=== PATIENT | male | born 1995 | race African-American/Black ===

== ENCOUNTER 2017-03-19 14:45 | Emergency (ER) | payer SELFPAY ==
[2017-03-19 14:55] VITALS: BP 120/59; PULSE 90; RESP 20; TEMP 98.1
--- NOTE | 2017-03-19 15:37 | ED ---
General Adult HPI - General Chief complaint: Skin/Abscess/Foreign Body Stated complaint: Poss MRSA Time Seen by Provider: 03/19/17 15:08 Source: patient, RN notes reviewed, old records reviewed Mode of arrival: ambulatory Limitations: no limitations - History of Present Illness Initial comments: This is a 21 year old male with CC of pimple over left shoulder. Patient reports he is concerned of MRSA. Patient reports that he is concerned of this and missed work. Patient reports he needs a work note. It is noted that patient is in swim suit, and there is sand over the bed. Patient admits to going to the beach. - Related Data Previous Rx's Medication Instructions Recorded Mupirocin 2% Oint [Bactroban 2% 1 applic TOPICAL TID #1 tube 03/19/17 Oint] Allergies Allergy/AdvReac Type Severity Reaction Status Date / Time No Known Allergies Allergy Verified 03/19/17 15:09 Review of Systems ROS Statement: Those systems with pertinent positive or pertinent negative responses have been documented in the HPI. ROS Other: All systems not noted in ROS Statement are negative. Past Medical History Past Medical History: No Reported History History of Any Multi-Drug Resistant Organisms: None Reported Past Surgical History: No Surgical Hx Reported Past Psychological History: No Psychological Hx Reported Smoking Status: Current every day smoker Past Alcohol Use History: Occasional Past Drug Use History: None Reported General Exam - General Exam Comments Initial Comments: This is a 21 year old male, no acute distress. Limitations: no limitations General appearance: alert, in no apparent distress Head exam: Present: atraumatic, normocephalic, normal inspection Eye exam: Present: normal appearance, PERRL, EOMI. Absent: scleral icterus, conjunctival injection, periorbital swelling ENT exam: Present: normal exam, mucous membranes moist Neck exam: Present: normal inspection. Absent: tenderness, meningismus, lymphadenopathy Respiratory exam: Present: normal lung sounds bilaterally. Absent: respiratory distress, wheezes, rales, rhonchi, stridor Cardiovascular Exam: Present: regular rate, normal rhythm, normal heart sounds. Absent: systolic murmur, diastolic murmur, rubs, gallop, clicks GI/Abdominal exam: Present: soft, normal bowel sounds. Absent: distended, tenderness, guarding, rebound, rigid Extremities exam: Present: normal inspection, full ROM, normal capillary refill. Absent: tenderness, pedal edema, joint swelling, calf tenderness Back exam: Present: normal inspection Neurological exam: Present: alert, oriented X3, CN II-XII intact Psychiatric exam: Present: normal affect, normal mood Skin exam: Present: warm, dry, intact, normal color, other (2 5mm lesion over left shoulder and chest that are consistent with papules, or body acne. ). Absent: rash Course Vital Signs 03/19/17 14:53 Temperature 98.1 F Pulse Rate 90 Respiratory 20 Rate Blood Pressure 120/59 O2 Sat by Pulse 99 Oximetry Medical Decision Making - Medical Decision Making This is a 21 year old male with CC of pimple over left shoulder. Patient reports he is concerned of MRSA. Patient reports that he is concerned of this and missed work. Patient reports he needs a work note. It is noted that patient is in swim suit, and there is sand over the bed. Patient admits to going to the beach. Patient has minor body acne on left shoulder, pus drained from site and culture obtained. Disucssed mupirocin cream. return parameters discussed. Disposition Clinical Impression: Acne Disposition: HOME SELF-CARE Condition: Good Instructions: Acne (ED) Additional Instructions: advised to follow-up with primary care provider. For the ointment on over the areas that are concerned about. Return to the emergency department if any alarming signs or symptoms occur. Prescriptions: Mupirocin 2% Oint [Bactroban 2% Oint] 1 applic TOPICAL TID #1 tube Referrals: None,Stated [Primary Care Provider] - 1-2 days Janel Crespo MD [STAFF PHYSICIAN] - 1-2 days Time of Disposition: 15:36
== END 2017-03-19 15:49 | disposition home or self-care (01) ==
LOC: EC 14:45
DX: L70.9 Acne, unspecified (principal); F17.200 Nicotine dependence, unspecified, uncomplicated
CPT/HCPCS: 87070; 87077; 87186; 87205; 99282